=== PATIENT | female | born 1970 | race Caucasian/White ===

== ENCOUNTER 2017-07-11 07:57 | Inpatient (IN) | payer MEDICARE, MEDICAID ==
[~2017-07-11] VITALS: Ht 157.5 cm; Wt 65.0 kg
[~2017-07-11 07:57] MED LIST: ACET-784 PO; ARIP15TA2 PO; IBUP-2070 PO; LORA1TAB3 PO; OMEP20 PO; ONDA4 PO; QUET200T PO
[2017-07-11] MEDS ORDERED: LORazepam 2 MG/ML VIAL IM ONE (08:15)
[2017-07-11] MEDS ORDERED: HALOPERIDOL LACTATE 5 MG/ML VIAL IM ONE (08:15)
[2017-07-11 09:01] LABS: ANION GAP 20 mmol/L (8-16); BASOPHILS # (AUTO) 0.07 K/uL (0.00-0.20); BASOPHILS % (AUTO) 1.5 % (0.0-2.0); CALCIUM, TOTAL 9.1 mg/dL (8.8-10.5); CARBON DIOXIDE 17 mmol/L (22-29); CHLORIDE 104 mmol/L (98-107); CREATININE 0.85 mg/dL (0.60-1.30); EOSINOPHILS % (AUTO) 2.05 % (1.0-6.0); GLOMERULAR FILTR. RATE CALC > 60 mL/min (>60); HEMATOCRIT 36.1 % (36-46); LYMPHOCYTES # (AUTO) 1.5 K/uL (1.0-4.8); LYMPHOCYTES % (AUTO) 31.2 % (22.0-44.0); MEAN CORPUSCULAR HGB CONC 33.3 G/dL (31.0-37.0); MEAN CORPUSCULAR VOLUME 90 fL (80-100); MONOCYTES # (AUTO) 0.5 K/uL (0.1-1.0); NEUTROPHILS # (AUTO) 2.6 K/uL (1.8-7.7); NEUTROPHILS % (AUTO) 54.3 % (40.0-70.0); PLATELET COUNT (AUTO) 316 K/uL (150-450); RED CELL DISTRIBUTION WIDTH 14.5 % (11.5-14.5); SODIUM SERUM 141 mmol/L (136-145); UREA NITROGEN, BLOOD 10 mg/dL (7-18); WHITE BLOOD COUNT (AUTO) 4.8 K/uL (4.5-11.0)
[2017-07-11 09:04] LABS: ALANINE AMINOTRANSFERASE 37 U/L (12-78); ASPARTATE AMINOTRANSFERASE 20 U/L (15-37); BILIRUBIN,TOTAL 0.5 mg/dL (0.1-1.0); TOTAL PROTEIN, SERUM 6.9 g/dL (6.4-8.2)
[2017-07-11] MEDS ORDERED: POTASSIUM CHLORIDE 20 MEQ ER TABLET PO ONE (10:45)
[2017-07-11] MEDS ORDERED: LORazepam 2 MG TABLET PO PRN (11:30)
[2017-07-11] MEDS ORDERED: ZOLPIDEM TARTRATE 10 MG TABLET PO PRN (11:30)
[2017-07-11] MEDS: QUEtiapine FUMARATE 200 MG TABLET PO SCH ×2 (12:30→21:08)
[2017-07-11] MEDS: LORazepam 1 MG TABLET PO SCH ×2 (13:00→17:22)
[2017-07-11 13:19] LABS: CHOL/HDL RATIO 5.2 (3.9-5.7)
[2017-07-11 13:45] VITALS: BP 116/69
[2017-07-11] MEDS ORDERED: INFLUENZA VIRUS VACCINE QVS 2017-18 (3YR+)/PF 60 MCG/0.5 ML SYRINGE IM ONE (13:45)
[2017-07-11 16:17] VITALS: BP 106/62
[2017-07-11 17:20] VITALS: BP 110/72
[2017-07-12 06:10] VITALS: BP 104/61
[2017-07-12] MEDS: LORazepam 1 MG TABLET PO SCH ×3 (08:25→17:06)
[2017-07-12] MEDS: QUEtiapine FUMARATE 200 MG TABLET PO SCH ×3 (08:25→20:50)
[2017-07-12 09:11] VITALS: BP 117/68
[2017-07-12 12:45] VITALS: BP 112/62
[2017-07-12] MEDS ORDERED: HALOPERIDOL LACTATE 5 MG/ML VIAL IM ONE (12:45)
[2017-07-12] MEDS ORDERED: LORazepam 2 MG/ML VIAL IM ONE (12:45)
[2017-07-12] MEDS ORDERED: DiphenhydrAMINE HCL 50 MG/ML VIAL IM ONE (12:45)
[2017-07-12 16:14] VITALS: BP 101/61
[2017-07-13 04:10] VITALS: BP 122/74
[2017-07-13] MEDS: LORazepam 1 MG TABLET PO SCH ×3 (08:35→16:50)
[2017-07-13] MEDS: QUEtiapine FUMARATE 200 MG TABLET PO SCH ×3 (08:36→20:30)
[2017-07-13 08:38] VITALS: BP 115/74
[2017-07-13] MEDS ORDERED: OMEPRAZOLE 20 MG CAPSULE PO SCH (14:30)
[2017-07-13] MEDS ORDERED: MAG HYDROX/AL HYDROX/SIMETH 30 ML SUSP UDCUP PO PRN ×2 (16:00→23:45)
[2017-07-13 16:13] VITALS: BP 113/73
[2017-07-14 01:23] VITALS: BP 101/68
[2017-07-14] MEDS: OMEPRAZOLE 20 MG CAPSULE PO SCH (08:31)
[2017-07-14] MEDS: LORazepam 1 MG TABLET PO SCH ×3 (08:32→16:38)
[2017-07-14] MEDS: QUEtiapine FUMARATE 200 MG TABLET PO SCH ×3 (08:32→20:38)
[2017-07-14 08:36] VITALS: BP 111/66
[2017-07-14] MEDS: HALOPERIDOL 5 MG TABLET PO PRN (15:07)
[2017-07-14 16:19] VITALS: BP 109/72
[2017-07-15 05:11] VITALS: BP 108/68
[2017-07-15] MEDS: HALOPERIDOL 5 MG TABLET PO PRN (05:12)
[2017-07-15 08:37] VITALS: BP 112/67
[2017-07-15] MEDS: LORazepam 1 MG TABLET PO SCH ×3 (08:58→16:33)
[2017-07-15] MEDS: QUEtiapine FUMARATE 200 MG TABLET PO SCH ×3 (08:58→20:35)
[2017-07-15] MEDS: OMEPRAZOLE 20 MG CAPSULE PO SCH (08:58)
[2017-07-15 16:06] VITALS: BP 105/66
[2017-07-16 02:05] VITALS: BP 112/71
[2017-07-16] MEDS: HALOPERIDOL 5 MG TABLET PO PRN ×2 (02:08→15:14)
[2017-07-16 08:21] VITALS: BP 111/71
[2017-07-16] MEDS: OMEPRAZOLE 20 MG CAPSULE PO SCH (08:33)
[2017-07-16] MEDS: LORazepam 1 MG TABLET PO SCH ×3 (08:33→16:38)
[2017-07-16] MEDS: QUEtiapine FUMARATE 200 MG TABLET PO SCH ×3 (08:34→20:37)
[2017-07-16 16:09] VITALS: BP 102/71
[2017-07-17 00:44] VITALS: BP_SYST 104; BP_SYST 114; BP_DIAS 60
[2017-07-17] MEDS: HALOPERIDOL 5 MG TABLET PO PRN ×2 (01:31→10:08)
[2017-07-17 09:14] VITALS: BP 110/70
[2017-07-17] MEDS: LORazepam 1 MG TABLET PO SCH ×3 (09:14→16:22)
[2017-07-17] MEDS: OMEPRAZOLE 20 MG CAPSULE PO SCH (09:14)
[2017-07-17] MEDS: QUEtiapine FUMARATE 200 MG TABLET PO SCH ×2 (09:14→12:24)
[2017-07-17 16:11] VITALS: BP 103/68
== END 2017-07-17 17:30 | disposition home or self-care (01) | DRG 885 ==
LOC: EMS 07:59 → B2X 11:51
PROVIDERS: ADMIT Psychiatry & Neurology Psychiatry; ATTEND Psychiatry & Neurology Psychiatry
DX: F20.0 Paranoid schizophrenia (principal); R45.851 Suicidal ideations; E78.5 Hyperlipidemia, unspecified; R73.9 Hyperglycemia, unspecified; E87.6 Hypokalemia; Z79.899 Other long term (current) drug therapy; Z88.1 Allergy status to other antibiotic agents; Z28.21 Immunization not carried out because of patient refusal
CPT/HCPCS: 93005; 96372; 99285; G0480; J1200; J1630; J2060

== ENCOUNTER 2017-11-03 11:20 | Inpatient (IN) | payer MEDICARE, MEDICAID ==
[~2017-11-03] VITALS: Ht 157.5 cm; Wt 65.7 kg
[~2017-11-03 11:20] MED LIST changes: -ACET-784 PO; -ARIP15TA2 PO; -IBUP-2070 PO; -LORA1TAB3 PO; -OMEP20 PO; -ONDA4 PO
[2017-11-03 12:38] VITALS: BP 125/71
[2017-11-03] MEDS ORDERED: ZOLPIDEM TARTRATE 10 MG TABLET PO PRN (12:45)
[2017-11-03] MEDS ORDERED: QUEtiapine FUMARATE 100 MG TABLET PO PRN (12:45)
[2017-11-03 14:48] VITALS: BP 138/95
[2017-11-03 16:21] VITALS: BP 117/73
[2017-11-03] MEDS: LORazepam 2 MG TABLET PO PRN (16:30)
[2017-11-04 02:59] VITALS: BP 122/79
[2017-11-04] MEDS: LORazepam 2 MG TABLET PO PRN ×3 (03:01→23:49)
[2017-11-04 08:10] LABS: EOSINOPHILS % (AUTO) 4.9 % (1.0-6.0); HEMATOCRIT 33.2 % (36-46); HEMOGLOBIN 10.6 g/dL (12.0-16.0); LYMPHOCYTES # (AUTO) 1.5 K/uL (1.0-4.8); LYMPHOCYTES % (AUTO) 34.8 % (22.0-44.0); MEAN CORPUSCULAR HEMOGLOBIN 23.7 pg (26.0-34.0); MEAN CORPUSCULAR HGB CONC 31.9 G/dL (31.0-37.0); MEAN CORPUSCULAR VOLUME 74 fL (80-100); MONOCYTES # (AUTO) 0.3 K/uL (0.1-1.0); MONOCYTES % (AUTO) 7.2 % (2.0-9.0); NEUTROPHILS # (AUTO) 2.3 K/uL (1.8-7.7); NEUTROPHILS % (AUTO) 52.1 % (40.0-70.0); PLATELET COUNT (AUTO) 275 K/uL (150-450); RED BLOOD CELL COUNT(AUTO) 4.48 MIL/uL (4.00-5.20)
[2017-11-04 08:48] VITALS: BP 129/70
[2017-11-04 09:00] LABS: ALANINE AMINOTRANSFERASE 65 U/L (12-78); ALBUMIN 3.8 g/dL (3.4-5.0); ALKALINE PHOSPHATASE 81 U/L (46-116); ANION GAP 9 mmol/L (8-16); ASPARTATE AMINOTRANSFERASE 35 U/L (15-37); BILIRUBIN,TOTAL 0.2 mg/dL (0.1-1.0); CALCIUM, TOTAL 8.9 mg/dL (8.8-10.5); CARBON DIOXIDE 26 mmol/L (22-29); CHLORIDE 106 mmol/L (98-107); CHOL/HDL RATIO 3.4 (3.9-5.7); CHOLESTEROL 220 mg/dL (131-200); CREATININE 0.58 mg/dL (0.60-1.30); FREE T4 (FREE THYROXINE) 0.64 ng/dL (0.76-1.46); GLOMERULAR FILTR. RATE CALC > 60 mL/min (>60); GLUCOSE,RANDOM 97 mg/dL (70-110); HCG,QUANTITATIVE 1 mIU/mL (0-6); HDL CHOLESTEROL 64 mg/dL (40-60); LDL CHOL (CALC.) 137 mg/dL (0-130); POTASSIUM 4.5 mmol/L (3.5-5.1); SODIUM SERUM 141 mmol/L (136-145); THYROID STIMULATING HORMONE 1.97 uIU/mL (0.36-3.74); TOTAL PROTEIN, SERUM 6.7 g/dL (6.4-8.2); TRIGLYCERIDES 94 mg/dL (15-150); UREA NITROGEN, BLOOD 12 mg/dL (7-18)
[2017-11-04] MEDS: QUEtiapine FUMARATE 200 MG TABLET PO SCH ×3 (09:26→20:53)
[2017-11-04 23:50] VITALS: BP 123/69
[2017-11-05] MEDS: MAG HYDROX/AL HYDROX/SIMETH ES 30 ML SUSPENSION UDCUP PO PRN ×2 (00:22→11:58)
[2017-11-05 00:45] VITALS: BP 113/60
[2017-11-05] MEDS: QUEtiapine FUMARATE 200 MG TABLET PO SCH ×3 (08:20→20:44)
[2017-11-05] MEDS: LORazepam 2 MG TABLET PO PRN ×3 (08:22→22:21)
[2017-11-05] MEDS ORDERED: PANT40TA25 PO (08:29)
[2017-11-05] MEDS: PANTOPRAZOLE SODIUM 40 MG DR TABLET PO SCH (09:20)
[2017-11-05 16:12] VITALS: BP 116/77
[2017-11-06] VITALS: BP 120/64
[2017-11-06] MEDS: MAG HYDROX/AL HYDROX/SIMETH ES 30 ML SUSPENSION UDCUP PO PRN (00:47)
[2017-11-06 08:21] VITALS: BP 117/72
[2017-11-06] MEDS: PANTOPRAZOLE SODIUM 40 MG DR TABLET PO SCH (08:28)
[2017-11-06] MEDS: QUEtiapine FUMARATE 200 MG TABLET PO SCH ×3 (08:28→20:34)
[2017-11-06] MEDS: LORazepam 2 MG TABLET PO PRN (08:41)
[2017-11-06 16:15] VITALS: BP 104/72
[2017-11-07 00:01] VITALS: BP 102/60
[2017-11-07 08:10] VITALS: BP 120/70
[2017-11-07] MEDS: QUEtiapine FUMARATE 200 MG TABLET PO SCH ×3 (08:31→20:47)
[2017-11-07] MEDS: PANTOPRAZOLE SODIUM 40 MG DR TABLET PO SCH (08:31)
[2017-11-07] MEDS: LORazepam 2 MG TABLET PO PRN ×2 (08:39→13:40)
[2017-11-07 16:36] VITALS: BP 103/64
[2017-11-07] MEDS: SIMVASTATIN 10 MG TABLET PO SCH (20:47)
[2017-11-08] VITALS: BP 106/68
[2017-11-08] MEDS: LORazepam 2 MG TABLET PO PRN ×3 (06:48→21:18)
[2017-11-08 07:59] LABS: BASOPHILS % (AUTO) 0.6 % (0.0-2.0); EOSINOPHILS % (AUTO) 5.5 % (1.0-6.0); HEMATOCRIT 31.3 % (36-46); HEMOGLOBIN 9.8 g/dL (12.0-16.0); LYMPHOCYTES # (AUTO) 1.3 K/uL (1.0-4.8); LYMPHOCYTES % (AUTO) 16.1 % (22.0-44.0); MEAN CORPUSCULAR HEMOGLOBIN 23.3 pg (26.0-34.0); MEAN CORPUSCULAR HGB CONC 31.4 G/dL (31.0-37.0); MEAN CORPUSCULAR VOLUME 74 fL (80-100); MONOCYTES # (AUTO) 0.6 K/uL (0.1-1.0); MONOCYTES % (AUTO) 6.8 % (2.0-9.0); NEUTROPHILS # (AUTO) 5.8 K/uL (1.8-7.7); PLATELET COUNT (AUTO) 324 K/uL (150-450); RED BLOOD CELL COUNT(AUTO) 4.22 MIL/uL (4.00-5.20); RED CELL DISTRIBUTION WIDTH 18.6 % (11.5-14.5)
[2017-11-08 08:00] VITALS: BP 114/74
[2017-11-08] MEDS: PANTOPRAZOLE SODIUM 40 MG DR TABLET PO SCH (08:38)
[2017-11-08] MEDS: QUEtiapine FUMARATE 200 MG TABLET PO SCH ×3 (08:39→20:47)
[2017-11-08 16:18] VITALS: BP 102/65
[2017-11-08] MEDS: SIMVASTATIN 10 MG TABLET PO SCH (20:47)
[2017-11-09] VITALS: BP 100/62
[2017-11-09] MEDS: MAG HYDROX/AL HYDROX/SIMETH ES 30 ML SUSPENSION UDCUP PO PRN (06:04)
[2017-11-09] MEDS: QUEtiapine FUMARATE 200 MG TABLET PO SCH ×2 (08:07→11:57)
[2017-11-09] MEDS: PANTOPRAZOLE SODIUM 40 MG DR TABLET PO SCH (08:07)
[2017-11-09 09:05] VITALS: BP 109/70
[2017-11-09] MEDS: LORazepam 2 MG TABLET PO PRN (09:22)
[2017-11-09] MEDS ORDERED: SIMV-259 PO (12:31)
[2017-11-09] MEDS ORDERED: QUET200T PO ×3 (12:31)
[2017-11-09] MEDS ORDERED: PANT40TA25 PO (12:31)
== END 2017-11-09 14:50 | disposition home or self-care (01) | DRG 885 ==
LOC: B2X 12:49
PROVIDERS: ADMIT Psychiatry & Neurology Psychiatry; ATTEND Psychiatry & Neurology Psychiatry
DX: F20.0 Paranoid schizophrenia (principal); D64.9 Anemia, unspecified; E78.5 Hyperlipidemia, unspecified; D72.819 Decreased white blood cell count, unspecified; G43.909 Migraine, unspecified, not intractable, without status migrainosus; J45.909 Unspecified asthma, uncomplicated; Z80.9 Family history of malignant neoplasm, unspecified; Z83.3 Family history of diabetes mellitus; Z82.49 Family history of ischemic heart disease and other diseases of the circulatory system; Z88.1 Allergy status to other antibiotic agents; Z79.899 Other long term (current) drug therapy
CPT/HCPCS: 84439; 84443

== ENCOUNTER 2018-06-23 14:03 | Inpatient (IN) | payer MEDICARE, MEDICAID ==
[~2018-06-23] VITALS: Ht 157.5 cm; Wt 65.6 kg
[~2018-06-23 14:03] MED LIST changes: +PANT40TA25 PO; +SIMV-259 PO
[2018-06-23] MEDS ORDERED: ZOLPIDEM TARTRATE 10 MG TABLET PO PRN (16:15)
[2018-06-23] MEDS ORDERED: BACITRACIN 28.4 GM OINTMENT TP PRN (17:00)
[2018-06-23] MEDS ORDERED: ALBUTEROL SULFATE HFA 90 MCG/PUFF 8 GM INHALER IH PRN (17:00)
[2018-06-23] MEDS ORDERED: MAGNESIUM HYDROXIDE SUSPENSION 30 ML UDCUP PO PRN (17:00)
[2018-06-23] MEDS ORDERED: BENZOCAINE/MENTHOL LOZENGE MM PRN (17:00)
[2018-06-23] MEDS ORDERED: CloNIDine HCL 0.1 MG TABLET PO PRN (17:00)
[2018-06-23] MEDS ORDERED: PETROLATUM,WHITE 71 GM JELLY TP PRN (17:00)
[2018-06-23] MEDS ORDERED: ONDANSETRON HCL 4 MG TABLET PO PRN (17:00)
[2018-06-23] MEDS: DOCUSATE SODIUM 100 MG CAPSULE PO SCH (17:17)
[2018-06-23] MEDS: OMEPRAZOLE 20 MG CAPSULE PO SCH (17:17)
[2018-06-23 19:18] LABS: ALANINE AMINOTRANSFERASE 116 U/L (12-78); ALBUMIN 3.4 g/dL (3.4-5.0); ALKALINE PHOSPHATASE 87 U/L (46-116); ANION GAP 6 mmol/L (8-16); ASPARTATE AMINOTRANSFERASE 54 U/L (15-37); BILIRUBIN,TOTAL 0.2 mg/dL (0.1-1.0); CALCIUM, TOTAL 8.3 mg/dL (8.8-10.5); CARBON DIOXIDE 30 mmol/L (22-29); CHLORIDE 102 mmol/L (98-107); CREATININE 0.95 mg/dL (0.60-1.30); GLOMERULAR FILTR. RATE CALC > 60 mL/min (>60); GLUCOSE,RANDOM 89 mg/dL (70-110); POTASSIUM 4.1 mmol/L (3.5-5.1); SODIUM SERUM 138 mmol/L (136-145); THYROID STIMULATING HORMONE 2.35 uIU/mL (0.36-3.74); TOTAL PROTEIN, SERUM 6.5 g/dL (6.4-8.2); UREA NITROGEN, BLOOD 11 mg/dL (7-18)
[2018-06-23 20:42] VITALS: BP 117/72
[2018-06-23] MEDS: LORazepam 2 MG TABLET PO PRN (21:46)
[2018-06-24 02:43] VITALS: BP 107/66
[2018-06-24 04:37] VITALS: BP 112/75
[2018-06-24] MEDS: LORazepam 2 MG TABLET PO PRN ×3 (04:41→19:48)
[2018-06-24] MEDS: IBUPROFEN 600 MG TABLET PO PRN ×2 (04:41→19:48)
[2018-06-24 05:59] LABS: APPEARANCE,URINE CLEAR (CLEAR); BILIRUBIN,URINE NEGATIVE (NEGATIVE); GLUCOSE, URINE (UA) NEGATIVE (NEGATIVE); KETONES,URINE NEGATIVE (NEGATIVE); LEUKOCYTE ESTERASE ,URINE NEGATIVE (NEGATIVE); NITRATE,URINE NEGATIVE (NEGATIVE); OCCULT BLOOD,URINE NEGATIVE (NEGATIVE); PH,URINE 7.5 (5.0-8.0); PROTEIN,URINE NEGATIVE (NEGATIVE); UROBILINOGEN,URINE 0.2 mg/dL (<=1.0)
[2018-06-24 06:04] LABS: AMPHET/METH SCREEN,URINE NEGATIVE (NEGATIVE); BARBITURATE SCREEN, URINE NEGATIVE (NEGATIVE); BENZODIAZEPINES SCREEN,URINE POSITIVE (NEGATIVE); CANNABINOID SCREEN,URINE POSITIVE (NEGATIVE); COCAINE SCREEN,URINE NEGATIVE (NEGATIVE); METHADONE SCREEN, URINE NEGATIVE (NEGATIVE); OPIATE SCREEN,URINE NEGATIVE (NEGATIVE); PHENCYCLIDINE SCREEN,URINE NEGATIVE (NEGATIVE)
[2018-06-24 06:27] LABS: BASOPHILS % (AUTO) 0.9 % (0.0-2.0); EOSINOPHILS % (AUTO) 4.7 % (1.0-6.0); HEMATOCRIT 40.5 % (36-46); HEMOGLOBIN 13.8 g/dL (12.0-16.0); LYMPHOCYTES # (AUTO) 1.3 K/uL (1.0-4.8); LYMPHOCYTES % (AUTO) 22.4 % (22.0-44.0); MEAN CORPUSCULAR HEMOGLOBIN 29.7 pg (26.0-34.0); MEAN CORPUSCULAR VOLUME 87 fL (80-100); MONOCYTES # (AUTO) 0.4 K/uL (0.1-1.0); MONOCYTES % (AUTO) 6.8 % (2.0-9.0); NEUTROPHILS # (AUTO) 3.9 K/uL (1.8-7.7); NEUTROPHILS % (AUTO) 65.2 % (40.0-70.0); PLATELET COUNT (AUTO) 265 K/uL (150-450); RED BLOOD CELL COUNT(AUTO) 4.63 MIL/uL (4.00-5.20); RED CELL DISTRIBUTION WIDTH 17.8 % (11.5-14.5)
[2018-06-24 07:04] LABS: ALANINE AMINOTRANSFERASE 111 U/L (12-78); ALBUMIN 3.5 g/dL (3.4-5.0); ALKALINE PHOSPHATASE 89 U/L (46-116); ANION GAP 7 mmol/L (8-16); ASPARTATE AMINOTRANSFERASE 46 U/L (15-37); BILIRUBIN,TOTAL 0.3 mg/dL (0.1-1.0); CALCIUM, TOTAL 8.4 mg/dL (8.8-10.5); CARBON DIOXIDE 28 mmol/L (22-29); CHLORIDE 101 mmol/L (98-107); CHOL/HDL RATIO 3.8 (3.9-5.7); CHOLESTEROL 227 mg/dL (131-200); CREATININE 0.83 mg/dL (0.60-1.30); GLOMERULAR FILTR. RATE CALC > 60 mL/min (>60); GLUCOSE,RANDOM 93 mg/dL (70-110); HDL CHOLESTEROL 60 mg/dL (40-60); LDL CHOL (CALC.) 149 mg/dL (0-130); POTASSIUM 4.9 mmol/L (3.5-5.1); SODIUM SERUM 136 mmol/L (136-145); THYROID STIMULATING HORMONE 1.89 uIU/mL (0.36-3.74); TOTAL PROTEIN, SERUM 6.4 g/dL (6.4-8.2); TRIGLYCERIDES 89 mg/dL (15-150); UREA NITROGEN, BLOOD 13 mg/dL (7-18)
[2018-06-24 09:10] VITALS: BP 125/84
[2018-06-24] MEDS: OMEPRAZOLE 20 MG CAPSULE PO SCH (09:20)
[2018-06-24] MEDS: DOCUSATE SODIUM 100 MG CAPSULE PO SCH (09:20)
[2018-06-24 17:00] VITALS: BP 118/80
[2018-06-24] MEDS ORDERED: DOCUSATE SODIUM 100 MG CAPSULE PO PRN (18:45)
[2018-06-24 19:48] VITALS: BP 127/78
[2018-06-24] MEDS: SIMVASTATIN 10 MG TABLET PO SCH (20:46)
[2018-06-24] MEDS: ZOLPIDEM TARTRATE 10 MG TABLET PO SCH (20:48)
[2018-06-24] MEDS ORDERED: QUEtiapine FUMARATE 200 MG TABLET PO SCH (21:00)
[2018-06-25 00:01] VITALS: BP 110/71
[2018-06-25] MEDS: HALOPERIDOL 5 MG TABLET PO PRN (00:03)
[2018-06-25] MEDS: LORazepam 2 MG TABLET PO PRN ×4 (01:05→20:51)
[2018-06-25] MEDS: PANTOPRAZOLE SODIUM 40 MG DR TABLET PO SCH (08:15)
[2018-06-25 09:29] VITALS: BP 112/70
[2018-06-25 16:30] VITALS: BP 98/64
[2018-06-25] MEDS: ZOLPIDEM TARTRATE 10 MG TABLET PO SCH (20:51)
[2018-06-25] MEDS: SIMVASTATIN 10 MG TABLET PO SCH (20:51)
[2018-06-25] MEDS: QUEtiapine FUMARATE 200 MG TABLET PO SCH (20:51)
[2018-06-26] MEDS: LORazepam 2 MG TABLET PO PRN ×3 (00:54→18:43)
[2018-06-26] MEDS: PANTOPRAZOLE SODIUM 40 MG DR TABLET PO SCH (08:30)
[2018-06-26 09:23] VITALS: BP 129/83
[2018-06-26 17:00] VITALS: BP 110/68
[2018-06-26] MEDS: TraZODone HCL 100 MG TABLET PO SCH (17:37)
[2018-06-26] MEDS: QUEtiapine FUMARATE 200 MG TABLET PO SCH (20:04)
[2018-06-26] MEDS: ZOLPIDEM TARTRATE 10 MG TABLET PO SCH (20:04)
[2018-06-26] MEDS: SIMVASTATIN 10 MG TABLET PO SCH (20:05)
[2018-06-27 02:14] VITALS: BP 97/70
[2018-06-27] MEDS: LORazepam 2 MG TABLET PO PRN ×4 (02:21→22:20)
[2018-06-27] MEDS ORDERED: TraZODone HCL 100 MG TABLET PO SCH (09:00)
[2018-06-27] MEDS: PANTOPRAZOLE SODIUM 40 MG DR TABLET PO SCH (09:05)
[2018-06-27] MEDS: TraZODone HCL 100 MG TABLET PO SCH ×3 (09:06→17:11)
[2018-06-27] MEDS: IBUPROFEN 600 MG TABLET PO PRN (09:12)
[2018-06-27 09:15] VITALS: BP 108/75
[2018-06-27 10:15] VITALS: BP 106/74
[2018-06-27 17:00] VITALS: BP 106/70
[2018-06-27] MEDS: ZOLPIDEM TARTRATE 10 MG TABLET PO SCH (20:57)
[2018-06-27] MEDS: QUEtiapine FUMARATE 200 MG TABLET PO SCH (20:57)
[2018-06-27] MEDS: SIMVASTATIN 10 MG TABLET PO SCH (21:14)
[2018-06-28 02:18] VITALS: BP 103/61
[2018-06-28] MEDS: LORazepam 2 MG TABLET PO PRN ×3 (03:21→16:34)
[2018-06-28] MEDS: PANTOPRAZOLE SODIUM 40 MG DR TABLET PO SCH (09:47)
[2018-06-28] MEDS: TraZODone HCL 100 MG TABLET PO SCH ×3 (09:47→16:34)
[2018-06-28 10:48] VITALS: BP 102/69
[2018-06-28] MEDS: HALOPERIDOL 5 MG TABLET PO PRN (16:36)
[2018-06-28 17:06] VITALS: BP 100/65
[2018-06-28] MEDS: ZOLPIDEM TARTRATE 10 MG TABLET PO SCH (21:15)
[2018-06-28] MEDS: SIMVASTATIN 10 MG TABLET PO SCH (21:15)
[2018-06-28] MEDS: QUEtiapine FUMARATE 200 MG TABLET PO SCH (21:15)
[2018-06-29 06:46] VITALS: BP 104/67
[2018-06-29] MEDS: LORazepam 2 MG TABLET PO PRN ×3 (09:02→18:50)
[2018-06-29] MEDS: PANTOPRAZOLE SODIUM 40 MG DR TABLET PO SCH (10:22)
[2018-06-29] MEDS: TraZODone HCL 100 MG TABLET PO SCH ×3 (10:22→16:18)
[2018-06-29 10:33] VITALS: BP 101/101
[2018-06-29 17:01] VITALS: BP 105/62
[2018-06-29 18:45] VITALS: BP 100/69
[2018-06-29] MEDS: IBUPROFEN 600 MG TABLET PO PRN (18:50)
[2018-06-29] MEDS: ZOLPIDEM TARTRATE 10 MG TABLET PO SCH (21:13)
[2018-06-29] MEDS: QUEtiapine FUMARATE 200 MG TABLET PO SCH (21:13)
[2018-06-29] MEDS: SIMVASTATIN 10 MG TABLET PO SCH (21:13)
[2018-06-30] MEDS: HALOPERIDOL 5 MG TABLET PO PRN ×3 (02:11→14:21)
[2018-06-30] MEDS: LORazepam 2 MG TABLET PO PRN ×4 (02:11→23:51)
[2018-06-30 08:00] VITALS: BP 98/65
[2018-06-30] MEDS: PANTOPRAZOLE SODIUM 40 MG DR TABLET PO SCH (08:26)
[2018-06-30] MEDS: TraZODone HCL 100 MG TABLET PO SCH ×3 (08:26→16:14)
[2018-06-30 14:18] VITALS: BP 115/67
[2018-06-30] MEDS: IBUPROFEN 600 MG TABLET PO PRN (16:14)
[2018-06-30 16:15] VITALS: BP 106/66
[2018-06-30] MEDS: SIMVASTATIN 10 MG TABLET PO SCH (20:30)
[2018-06-30] MEDS: ZOLPIDEM TARTRATE 10 MG TABLET PO SCH (20:30)
[2018-06-30] MEDS: QUEtiapine FUMARATE 200 MG TABLET PO SCH (20:31)
[2018-06-30 23:50] VITALS: BP 89/52
[2018-06-30] MEDS: LOPERAMIDE HCL 2 MG CAPSULE PO PRN (23:50)
[2018-07-01] MEDS: LOPERAMIDE HCL 2 MG CAPSULE PO PRN ×3 (01:56→06:52)
[2018-07-01 04:15] VITALS: BP 95/58
[2018-07-01] MEDS: MAG HYDROX/AL HYDROX/SIMETH ES 30 ML SUSPENSION UDCUP PO PRN ×3 (06:52→23:31)
[2018-07-01] MEDS ORDERED: DIPHENOXYLATE/ATROP 2.5-0.025 MG TABLET PO ONE (07:45)
[2018-07-01] MEDS: PANTOPRAZOLE SODIUM 40 MG DR TABLET PO SCH (08:04)
[2018-07-01] MEDS: TraZODone HCL 100 MG TABLET PO SCH ×3 (08:04→16:16)
[2018-07-01] MEDS: IBUPROFEN 600 MG TABLET PO PRN (10:45)
[2018-07-01] MEDS: LORazepam 2 MG TABLET PO PRN (10:45)
[2018-07-01 10:51] VITALS: BP 110/60
[2018-07-01] MEDS: DIPHENOXYLATE/ATROP 2.5-0.025 MG TABLET PO PRN (12:30)
[2018-07-01 16:47] VITALS: BP 100/57
[2018-07-01] MEDS: ZOLPIDEM TARTRATE 10 MG TABLET PO SCH (21:04)
[2018-07-01] MEDS: QUEtiapine FUMARATE 200 MG TABLET PO SCH (21:04)
[2018-07-01] MEDS: SIMVASTATIN 10 MG TABLET PO SCH (21:04)
[2018-07-01 21:25] LABS: BASOPHILS % (AUTO) 0.4 % (0.0-2.0); EOSINOPHILS % (AUTO) 2.2 % (1.0-6.0); HEMATOCRIT 38.7 % (36-46); HEMOGLOBIN 13.1 g/dL (12.0-16.0); LYMPHOCYTES # (AUTO) 1.2 K/uL (1.0-4.8); LYMPHOCYTES % (AUTO) 17.6 % (22.0-44.0); MEAN CORPUSCULAR HEMOGLOBIN 29.6 pg (26.0-34.0); MEAN CORPUSCULAR HGB CONC 33.8 G/dL (31.0-37.0); MEAN CORPUSCULAR VOLUME 88 fL (80-100); MONOCYTES # (AUTO) 0.5 K/uL (0.1-1.0); MONOCYTES % (AUTO) 8.1 % (2.0-9.0); NEUTROPHILS # (AUTO) 4.7 K/uL (1.8-7.7); NEUTROPHILS % (AUTO) 71.7 % (40.0-70.0); PLATELET COUNT (AUTO) 268 K/uL (150-450); RED BLOOD CELL COUNT(AUTO) 4.42 MIL/uL (4.00-5.20); RED CELL DISTRIBUTION WIDTH 17.1 % (11.5-14.5)
[2018-07-01 21:33] LABS: ANION GAP 6 mmol/L (8-16); CALCIUM, TOTAL 7.9 mg/dL (8.8-10.5); CARBON DIOXIDE 26 mmol/L (22-29); CHLORIDE 103 mmol/L (98-107); GLOMERULAR FILTR. RATE CALC > 60 mL/min (>60); GLUCOSE,RANDOM 102 mg/dL (70-110); POTASSIUM 3.5 mmol/L (3.5-5.1); SODIUM SERUM 135 mmol/L (136-145); UREA NITROGEN, BLOOD 11 mg/dL (7-18)
[2018-07-01 21:44] LABS: ALANINE AMINOTRANSFERASE 34 U/L (12-78); ALBUMIN 3.6 g/dL (3.4-5.0); ALKALINE PHOSPHATASE 88 U/L (46-116); ASPARTATE AMINOTRANSFERASE 15 U/L (15-37); BILIRUBIN,TOTAL 0.3 mg/dL (0.1-1.0); HCG,QUANTITATIVE < 1 mIU/mL (0-6); PHOSPHORUS 2.7 mg/dL (2.5-4.9)
[2018-07-01 23:27] VITALS: BP 101/52
[2018-07-01] MEDS: ACETAMINOPHEN 325 MG TABLET PO PRN (23:27)
[2018-07-02 06:06] VITALS: BP 126/69
[2018-07-02 06:46] LABS: BASOPHILS % (AUTO) 0.2 % (0.0-2.0); EOSINOPHILS % (AUTO) 3.4 % (1.0-6.0); HEMATOCRIT 36.7 % (36-46); HEMOGLOBIN 12.8 g/dL (12.0-16.0); LYMPHOCYTES # (AUTO) 0.9 K/uL (1.0-4.8); LYMPHOCYTES % (AUTO) 17.3 % (22.0-44.0); MEAN CORPUSCULAR HEMOGLOBIN 30.2 pg (26.0-34.0); MEAN CORPUSCULAR HGB CONC 34.8 G/dL (31.0-37.0); MEAN CORPUSCULAR VOLUME 87 fL (80-100); MONOCYTES # (AUTO) 0.5 K/uL (0.1-1.0); MONOCYTES % (AUTO) 10.4 % (2.0-9.0); NEUTROPHILS # (AUTO) 3.4 K/uL (1.8-7.7); NEUTROPHILS % (AUTO) 68.7 % (40.0-70.0); PLATELET COUNT (AUTO) 249 K/uL (150-450); RED BLOOD CELL COUNT(AUTO) 4.23 MIL/uL (4.00-5.20); RED CELL DISTRIBUTION WIDTH 17.3 % (11.5-14.5)
[2018-07-02 07:00] LABS: ANION GAP 3 mmol/L (8-16); CALCIUM, TOTAL 7.8 mg/dL (8.8-10.5); CARBON DIOXIDE 28 mmol/L (22-29); CHLORIDE 101 mmol/L (98-107); GLOMERULAR FILTR. RATE CALC > 60 mL/min (>60); GLUCOSE,RANDOM 108 mg/dL (70-110); POTASSIUM 3.4 mmol/L (3.5-5.1); SODIUM SERUM 132 mmol/L (136-145); UREA NITROGEN, BLOOD 11 mg/dL (7-18)
[2018-07-02 09:13] VITALS: BP 106/62
[2018-07-02] MEDS: PANTOPRAZOLE SODIUM 40 MG DR TABLET PO SCH (09:21)
[2018-07-02] MEDS: TraZODone HCL 100 MG TABLET PO SCH ×3 (09:21→16:38)
[2018-07-02] MEDS: LORazepam 2 MG TABLET PO PRN (09:22)
[2018-07-02] MEDS: ACETAMINOPHEN 325 MG TABLET PO PRN (15:16)
[2018-07-02 15:18] VITALS: BP 103/66
[2018-07-02] MEDS: DIPHENOXYLATE/ATROP 2.5-0.025 MG TABLET PO PRN (17:47)
[2018-07-02] MEDS: ZOLPIDEM TARTRATE 10 MG TABLET PO SCH (20:47)
[2018-07-02] MEDS: SIMVASTATIN 10 MG TABLET PO SCH (20:47)
[2018-07-02] MEDS: QUEtiapine FUMARATE 200 MG TABLET PO SCH (20:47)
[2018-07-03] MEDS: LORazepam 2 MG TABLET PO PRN ×2 (00:03→09:12)
[2018-07-03 00:15] VITALS: BP 113/71
[2018-07-03 08:00] VITALS: BP 99/67
[2018-07-03] MEDS: PANTOPRAZOLE SODIUM 40 MG DR TABLET PO SCH (08:46)
[2018-07-03] MEDS: TraZODone HCL 100 MG TABLET PO SCH ×3 (08:46→17:22)
[2018-07-03 14:15] VITALS: BP 99/67
[2018-07-03 16:36] VITALS: BP 101/59
[2018-07-03] MEDS ORDERED: HALOPERIDOL LACTATE 5 MG/ML VIAL IM ONE (17:15)
[2018-07-03] MEDS ORDERED: DiphenhydrAMINE HCL 50 MG/ML VIAL IM ONE (17:15)
[2018-07-03] MEDS ORDERED: LORazepam 2 MG/ML VIAL IM ONE (17:15)
[2018-07-03] MEDS: QUEtiapine FUMARATE 200 MG TABLET PO SCH (20:26)
[2018-07-03] MEDS: ZOLPIDEM TARTRATE 10 MG TABLET PO SCH (20:26)
[2018-07-03] MEDS: SIMVASTATIN 10 MG TABLET PO SCH (20:27)
[2018-07-04 00:35] VITALS: BP 94/63
[2018-07-04] MEDS: TraZODone HCL 100 MG TABLET PO SCH ×3 (09:02→16:49)
[2018-07-04] MEDS: PANTOPRAZOLE SODIUM 40 MG DR TABLET PO SCH (09:02)
[2018-07-04] MEDS: LORazepam 1 MG TABLET PO SCH ×3 (09:02→16:49)
[2018-07-04] MEDS: DIPHENOXYLATE/ATROP 2.5-0.025 MG TABLET PO PRN (09:52)
[2018-07-04 12:07] VITALS: BP 96/70
[2018-07-04 16:29] VITALS: BP 101/75
[2018-07-04 19:39] VITALS: BP 110/74
[2018-07-04] MEDS: ACETAMINOPHEN 325 MG TABLET PO PRN (19:39)
[2018-07-04] MEDS: QUEtiapine FUMARATE 200 MG TABLET PO SCH (20:00)
[2018-07-04] MEDS: SIMVASTATIN 10 MG TABLET PO SCH (20:00)
[2018-07-04] MEDS: ZOLPIDEM TARTRATE 10 MG TABLET PO SCH (20:01)
[2018-07-04] MEDS: LOPERAMIDE HCL 2 MG CAPSULE PO PRN (20:04)
[2018-07-05] MEDS: IBUPROFEN 600 MG TABLET PO PRN (00:21)
[2018-07-05 01:13] VITALS: BP 83/54
[2018-07-05] MEDS: DIPHENOXYLATE/ATROP 2.5-0.025 MG TABLET PO PRN (02:24)
[2018-07-05] MEDS: LORazepam 1 MG TABLET PO SCH ×3 (08:31→16:32)
[2018-07-05] MEDS: PANTOPRAZOLE SODIUM 40 MG DR TABLET PO SCH (08:31)
[2018-07-05] MEDS: TraZODone HCL 100 MG TABLET PO SCH ×3 (08:31→16:32)
[2018-07-05 10:40] VITALS: BP 109/75
[2018-07-05 16:10] VITALS: BP 105/68
[2018-07-05] MEDS: ZOLPIDEM TARTRATE 10 MG TABLET PO SCH (20:15)
[2018-07-05] MEDS: SIMVASTATIN 10 MG TABLET PO SCH (20:15)
[2018-07-05] MEDS: QUEtiapine FUMARATE 200 MG TABLET PO SCH (20:16)
[2018-07-06 00:01] VITALS: BP 112/68
[2018-07-06] MEDS: LOPERAMIDE HCL 2 MG CAPSULE PO PRN (00:01)
[2018-07-06] MEDS: IBUPROFEN 600 MG TABLET PO PRN (00:01)
[2018-07-06] MEDS: TraZODone HCL 100 MG TABLET PO SCH ×3 (08:24→16:49)
[2018-07-06] MEDS: PANTOPRAZOLE SODIUM 40 MG DR TABLET PO SCH (08:24)
[2018-07-06] MEDS: LORazepam 1 MG TABLET PO SCH ×3 (08:24→16:49)
[2018-07-06] MEDS: TiZANidine HCL 4 MG TABLET PO PRN ×2 (09:07→16:53)
[2018-07-06 09:12] VITALS: BP 117/82
[2018-07-06] MEDS ORDERED: IBUPROFEN 800 MG TABLET PO PRN (11:00)
[2018-07-06 16:53] VITALS: BP 109/63
[2018-07-06 16:54] VITALS: BP 109/63
[2018-07-06] MEDS: QUEtiapine FUMARATE 200 MG TABLET PO SCH (20:45)
[2018-07-06] MEDS: ZOLPIDEM TARTRATE 10 MG TABLET PO SCH (20:46)
[2018-07-06] MEDS: SIMVASTATIN 10 MG TABLET PO SCH (20:46)
[2018-07-07 00:39] VITALS: BP 93/59
[2018-07-07] MEDS: PANTOPRAZOLE SODIUM 40 MG DR TABLET PO SCH (08:35)
[2018-07-07] MEDS: LORazepam 1 MG TABLET PO SCH ×2 (08:35→12:44)
[2018-07-07] MEDS: TraZODone HCL 100 MG TABLET PO SCH ×2 (08:35→12:44)
[2018-07-07 08:40] VITALS: BP 113/67
[2018-07-07] MEDS: TiZANidine HCL 4 MG TABLET PO PRN ×2 (08:43→14:46)
[2018-07-07 10:56] VITALS: BP 104/67
[2018-07-07] MEDS ORDERED: TRAZ-220 PO (12:02)
[2018-07-07] MEDS ORDERED: QUET200T PO (12:02)
== END 2018-07-07 15:10 | disposition home or self-care (01) | DRG 885 ==
LOC: 3EX 15:30
PROVIDERS: ADMIT Psychiatry & Neurology Psychiatry; ATTEND Psychiatry & Neurology Psychiatry
DX: F20.0 Paranoid schizophrenia (principal); R45.851 Suicidal ideations; D64.9 Anemia, unspecified; E78.00 Pure hypercholesterolemia, unspecified; E83.51 Hypocalcemia; F12.90 Cannabis use, unspecified, uncomplicated; G43.909 Migraine, unspecified, not intractable, without status migrainosus; G47.00 Insomnia, unspecified; Z63.8 Other specified problems related to primary support group; N93.9 Abnormal uterine and vaginal bleeding, unspecified; R19.7 Diarrhea, unspecified; Z88.1 Allergy status to other antibiotic agents
CPT/HCPCS: 76700; 76856; 80074; 80307; 83036; 83735; 84100; 84436; 84439; 84443; 86850; 86900; 86901; 87045; 87081; 87427; G0378; J1200; J1630; J2060; Q0162

== ENCOUNTER 2018-07-08 13:47 | Inpatient (IN) | payer MEDICARE, MEDICAID ==
[~2018-07-08] VITALS: Ht 157.5 cm; Wt 63.5 kg
[~2018-07-08 13:47] MED LIST changes: +TRAZ-220 PO
[2018-07-08] MEDS ORDERED: HALOPERIDOL 5 MG TABLET PO PRN (16:30)
[2018-07-08] MEDS ORDERED: LORazepam 2 MG TABLET PO PRN (16:30)
[2018-07-08 18:15] VITALS: BP 109/55
[2018-07-08] MEDS: ZOLPIDEM TARTRATE 10 MG TABLET PO PRN (23:40)
[2018-07-09 00:26] VITALS: BP 112/60
[2018-07-09 07:43] LABS: BASOPHILS % (AUTO) 0.4 % (0.0-2.0); EOSINOPHILS % (AUTO) 9.6 % (1.0-6.0); HEMATOCRIT 36.3 % (36-46); HEMOGLOBIN 12.4 g/dL (12.0-16.0); LYMPHOCYTES # (AUTO) 1.8 K/uL (1.0-4.8); LYMPHOCYTES % (AUTO) 23.3 % (22.0-44.0); MEAN CORPUSCULAR HEMOGLOBIN 29.7 pg (26.0-34.0); MEAN CORPUSCULAR HGB CONC 34.3 G/dL (31.0-37.0); MEAN CORPUSCULAR VOLUME 87 fL (80-100); MONOCYTES # (AUTO) 0.6 K/uL (0.1-1.0); MONOCYTES % (AUTO) 8.2 % (2.0-9.0); NEUTROPHILS # (AUTO) 4.5 K/uL (1.8-7.7); NEUTROPHILS % (AUTO) 58.5 % (40.0-70.0); PLATELET COUNT (AUTO) 383 K/uL (150-450); RED BLOOD CELL COUNT(AUTO) 4.19 MIL/uL (4.00-5.20)
[2018-07-09 08:08] VITALS: BP 120/69
[2018-07-09 08:10] LABS: ALANINE AMINOTRANSFERASE 19 U/L (12-78); ALBUMIN 3.3 g/dL (3.4-5.0); ALKALINE PHOSPHATASE 67 U/L (46-116); ANION GAP 6 mmol/L (8-16); ASPARTATE AMINOTRANSFERASE 13 U/L (15-37); BILIRUBIN,TOTAL 0.1 mg/dL (0.1-1.0); CALCIUM, TOTAL 8.3 mg/dL (8.8-10.5); CARBON DIOXIDE 29 mmol/L (22-29); CHLORIDE 106 mmol/L (98-107); CHOL/HDL RATIO 2.3 (3.9-5.7); CHOLESTEROL 104 mg/dL (131-200); CREATININE 0.78 mg/dL (0.60-1.30); FREE T4 (FREE THYROXINE) 0.81 ng/dL (0.76-1.46); GLOMERULAR FILTR. RATE CALC > 60 mL/min (>60); GLUCOSE,RANDOM 88 mg/dL (70-110); HCG,QUANTITATIVE < 1 mIU/mL (0-6); HDL CHOLESTEROL 45 mg/dL (40-60); LDL CHOL (CALC.) 53 mg/dL (0-130); POTASSIUM 3.9 mmol/L (3.5-5.1); SODIUM SERUM 141 mmol/L (136-145); THYROID STIMULATING HORMONE 2.39 uIU/mL (0.36-3.74); TOTAL PROTEIN, SERUM 6.2 g/dL (6.4-8.2); TRIGLYCERIDES 30 mg/dL (15-150); UREA NITROGEN, BLOOD 8 mg/dL (7-18)
[2018-07-09 08:13] LABS: HEMOGLOBIN A1C 5.2 % (4.5-6.2)
[2018-07-09] MEDS: LORazepam 1 MG TABLET PO SCH ×2 (12:23→16:36)
[2018-07-09] MEDS: TraZODone HCL 100 MG TABLET PO SCH ×2 (12:23→16:36)
[2018-07-09 16:14] VITALS: BP 131/69
[2018-07-09] MEDS ORDERED: ALBUTEROL SULFATE HFA 90 MCG/PUFF 8 GM INHALER IH PRN (19:30)
[2018-07-09] MEDS ORDERED: LOPERAMIDE HCL 2 MG CAPSULE PO PRN (19:30)
[2018-07-09] MEDS ORDERED: ONDANSETRON HCL 4 MG TABLET PO PRN (19:30)
[2018-07-09] MEDS ORDERED: IBUPROFEN 600 MG TABLET PO PRN (19:30)
[2018-07-09] MEDS ORDERED: PETROLATUM,WHITE 71 GM JELLY TP PRN (19:30)
[2018-07-09] MEDS ORDERED: ACETAMINOPHEN 325 MG TABLET PO PRN (19:30)
[2018-07-09] MEDS ORDERED: DOCUSATE SODIUM 100 MG CAPSULE PO PRN (19:30)
[2018-07-09] MEDS ORDERED: MAGNESIUM HYDROXIDE SUSPENSION 30 ML UDCUP PO PRN (19:30)
[2018-07-09] MEDS ORDERED: BENZOCAINE/MENTHOL LOZENGE MM PRN (19:30)
[2018-07-09] MEDS ORDERED: BACITRACIN 28.4 GM OINTMENT TP PRN (19:30)
[2018-07-09] MEDS ORDERED: CloNIDine HCL 0.1 MG TABLET PO PRN (19:30)
[2018-07-09] MEDS ORDERED: MAG HYDROX/AL HYDROX/SIMETH ES 30 ML SUSPENSION UDCUP PO PRN (19:30)
[2018-07-09] MEDS ORDERED: SIMVASTATIN 10 MG TABLET PO SCH (21:00)
[2018-07-09] MEDS ORDERED: QUEtiapine FUMARATE 200 MG TABLET PO SCH (21:00)
[2018-07-09] MEDS: ZOLPIDEM TARTRATE 10 MG TABLET PO PRN (22:01)
[2018-07-10] VITALS: BP 116/68
[2018-07-10] MEDS: TraZODone HCL 100 MG TABLET PO SCH ×2 (08:12→12:29)
[2018-07-10] MEDS: LORazepam 1 MG TABLET PO SCH ×2 (08:12→12:29)
[2018-07-10 08:17] VITALS: BP 103/64
[2018-07-10] MEDS ORDERED: PANTOPRAZOLE SODIUM 40 MG DR TABLET PO SCH (09:00)
[2018-07-10] MEDS ORDERED: SIMV-259 PO (11:54)
[2018-07-10] MEDS ORDERED: LORA1TAB3 PO (12:17)
== END 2018-07-10 14:20 | disposition home or self-care (01) | DRG 885 ==
LOC: B2X 16:35
PROVIDERS: ADMIT Psychiatry & Neurology Psychiatry; ATTEND Psychiatry & Neurology Psychiatry
DX: F25.9 Schizoaffective disorder, unspecified (principal); D64.9 Anemia, unspecified; E78.00 Pure hypercholesterolemia, unspecified; E83.51 Hypocalcemia; F12.90 Cannabis use, unspecified, uncomplicated; G43.909 Migraine, unspecified, not intractable, without status migrainosus; Z79.899 Other long term (current) drug therapy; Z88.1 Allergy status to other antibiotic agents
CPT/HCPCS: 83036; 84439; 84443; 87081

== ENCOUNTER 2019-03-29 14:12 | Inpatient (IN) | payer MEDICARE, MEDICAID ==
[~2019-03-29] VITALS: Ht 157.5 cm; Wt 75.5 kg
[~2019-03-29 14:12] MED LIST changes: +LORA1TAB3 PO
[2019-03-29] MEDS ORDERED: IBUPROFEN 600 MG TABLET PO ONE (15:45)
[2019-03-29 15:54] LABS: BASOPHILS % (AUTO) 0.8 % (0.0-2.0); EOSINOPHILS % (AUTO) 2.7 % (1.0-6.0); HEMATOCRIT 43.3 % (36-46); HEMOGLOBIN 14.4 g/dL (12.0-16.0); LYMPHOCYTES # (AUTO) 1.6 K/uL (1.0-4.8); LYMPHOCYTES % (AUTO) 24.1 % (22.0-44.0); MEAN CORPUSCULAR HEMOGLOBIN 30.2 pg (26.0-34.0); MEAN CORPUSCULAR HGB CONC 33.2 G/dL (31.0-37.0); MEAN CORPUSCULAR VOLUME 91 fL (80-100); MONOCYTES # (AUTO) 0.5 K/uL (0.1-1.0); MONOCYTES % (AUTO) 7.7 % (2.0-9.0); NEUTROPHILS # (AUTO) 4.2 K/uL (1.8-7.7); NEUTROPHILS % (AUTO) 64.7 % (40.0-70.0); PLATELET COUNT (AUTO) 265 K/uL (150-450); RED BLOOD CELL COUNT(AUTO) 4.77 MIL/uL (4.00-5.20); RED CELL DISTRIBUTION WIDTH 12.7 % (11.5-14.5)
[2019-03-29 16:05] LABS: ANION GAP 13 mmol/L (8-16); CALCIUM, TOTAL 10.1 mg/dL (8.8-10.5); CARBON DIOXIDE 23 mmol/L (22-29); CHLORIDE 101 mmol/L (98-107); CREATININE 0.93 mg/dL (0.60-1.30); GLOMERULAR FILTR. RATE CALC > 60 mL/min (>60); GLUCOSE,RANDOM 101 mg/dL (70-110); SODIUM SERUM 137 mmol/L (136-145); UREA NITROGEN, BLOOD 11 mg/dL (7-18)
[2019-03-29 16:10] LABS: ALANINE AMINOTRANSFERASE 74 U/L (12-78); ALKALINE PHOSPHATASE 88 U/L (46-116); ASPARTATE AMINOTRANSFERASE 25 U/L (15-37); BILIRUBIN,TOTAL 0.2 mg/dL (0.1-1.0); TOTAL PROTEIN, SERUM 7.8 g/dL (6.4-8.2)
[2019-03-29] MEDS ORDERED: LORazepam 2 MG TABLET PO PRN (16:15)
[2019-03-29] MEDS ORDERED: HALOPERIDOL 5 MG TABLET PO PRN (16:15)
[2019-03-29 18:07] LABS: AMPHET/METH SCREEN,URINE NEGATIVE (NEGATIVE); BARBITURATE SCREEN, URINE NEGATIVE (NEGATIVE); BENZODIAZEPINES SCREEN,URINE NEGATIVE (NEGATIVE); CANNABINOID SCREEN,URINE NEGATIVE (NEGATIVE); COCAINE SCREEN,URINE NEGATIVE (NEGATIVE); METHADONE SCREEN, URINE NEGATIVE (NEGATIVE); OPIATE SCREEN,URINE NEGATIVE (NEGATIVE); PHENCYCLIDINE SCREEN,URINE NEGATIVE (NEGATIVE)
[2019-03-29 18:59] VITALS: BP 110/72
[2019-03-29] MEDS ORDERED: ACETAMINOPHEN 325 MG TABLET PO PRN (19:30)
[2019-03-29] MEDS: SIMVASTATIN 10 MG TABLET PO SCH (22:18)
[2019-03-30 06:22] LABS: CHOL/HDL RATIO 5.3 (3.9-5.7); FREE T4 (FREE THYROXINE) 0.67 ng/dL (0.76-1.46); THYROID STIMULATING HORMONE 2.19 uIU/mL (0.36-3.74)
[2019-03-30] MEDS: PANTOPRAZOLE SODIUM 40 MG DR TABLET PO SCH (08:22)
[2019-03-30] MEDS ORDERED: BENZOCAINE/MENTHOL LOZENGE MM PRN (08:30)
[2019-03-30] MEDS ORDERED: ONDANSETRON HCL 4 MG TABLET PO PRN (08:30)
[2019-03-30] MEDS ORDERED: MAG HYDROX/AL HYDROX/SIMETH ES 30 ML SUSPENSION UDCUP PO PRN (08:30)
[2019-03-30] MEDS ORDERED: PETROLATUM,WHITE 28 GM JELLY TP PRN (08:30)
[2019-03-30] MEDS ORDERED: ALBUTEROL SULFATE HFA 90 MCG/PUFF 8 GM INHALER IH PRN (08:30)
[2019-03-30] MEDS ORDERED: MAGNESIUM HYDROXIDE SUSPENSION 30 ML UDCUP PO PRN (08:30)
[2019-03-30] MEDS ORDERED: LOPERAMIDE HCL 2 MG CAPSULE PO PRN (08:30)
[2019-03-30] MEDS ORDERED: BACITRACIN 28.4 GM OINTMENT TP PRN (08:30)
[2019-03-30] MEDS ORDERED: CloNIDine HCL 0.1 MG TABLET PO PRN (08:30)
[2019-03-30] MEDS: DOCUSATE SODIUM 100 MG CAPSULE PO SCH (09:00)
[2019-03-30 11:26] VITALS: BP 142/98
[2019-03-30] MEDS ORDERED: LURA80 PO (15:32)
[2019-03-30 16:49] VITALS: BP 120/79
[2019-03-30] MEDS: LORazepam 1 MG TABLET PO SCH (17:30)
[2019-03-30] MEDS: LURASIDONE HCL 80 MG TABLET PO SCH (21:56)
[2019-03-30] MEDS: SIMVASTATIN 10 MG TABLET PO SCH (21:56)
[2019-03-30] MEDS: QUEtiapine FUMARATE 200 MG TABLET PO SCH (21:56)
[2019-03-30] MEDS: IBUPROFEN 600 MG TABLET PO PRN (22:54)
[2019-03-30] MEDS: ZOLPIDEM TARTRATE 10 MG TABLET PO PRN (23:59)
[2019-03-31 00:06] VITALS: BP 92/62
[2019-03-31] MEDS: IBUPROFEN 600 MG TABLET PO PRN ×2 (06:12→15:00)
[2019-03-31] MEDS: PANTOPRAZOLE SODIUM 40 MG DR TABLET PO SCH (08:23)
[2019-03-31] MEDS: LORazepam 1 MG TABLET PO SCH ×3 (08:23→16:21)
[2019-03-31] MEDS: DOCUSATE SODIUM 100 MG CAPSULE PO SCH (08:24)
[2019-03-31] MEDS: BENZTROPINE MESYLATE 0.5 MG TABLET PO SCH ×2 (09:55→16:21)
[2019-03-31 10:10] VITALS: BP 107/70
[2019-03-31 15:01] VITALS: BP 141/94
[2019-03-31] MEDS: SIMVASTATIN 10 MG TABLET PO SCH (20:10)
[2019-03-31] MEDS: LURASIDONE HCL 80 MG TABLET PO SCH (20:10)
[2019-03-31] MEDS: QUEtiapine FUMARATE 200 MG TABLET PO SCH (20:10)
[2019-03-31] MEDS: ZOLPIDEM TARTRATE 10 MG TABLET PO PRN (22:04)
[2019-04-01 04:00] VITALS: BP 122/78
[2019-04-01] MEDS: LORazepam 1 MG TABLET PO SCH ×3 (08:56→16:19)
[2019-04-01] MEDS: DOCUSATE SODIUM 100 MG CAPSULE PO SCH (08:56)
[2019-04-01] MEDS: BENZTROPINE MESYLATE 0.5 MG TABLET PO SCH ×3 (08:57→20:06)
[2019-04-01] MEDS: PANTOPRAZOLE SODIUM 40 MG DR TABLET PO SCH (08:57)
[2019-04-01 10:01] VITALS: BP 115/72
[2019-04-01 17:11] VITALS: BP 134/85
[2019-04-01] MEDS: QUEtiapine FUMARATE 200 MG TABLET PO SCH (20:05)
[2019-04-01] MEDS: SIMVASTATIN 10 MG TABLET PO SCH (20:06)
[2019-04-01] MEDS: LURASIDONE HCL 80 MG TABLET PO SCH (20:06)
[2019-04-01] MEDS ORDERED: SIMVASTATIN 10 MG TABLET PO SCH (21:00)
[2019-04-01] MEDS: ZOLPIDEM TARTRATE 10 MG TABLET PO PRN (22:06)
[2019-04-02] VITALS: BP 131/85
[2019-04-02] MEDS: LORazepam 2 MG TABLET PO PRN ×3 (00:07→16:21)
[2019-04-02 04:33] VITALS: BP 122/70
[2019-04-02] MEDS: IBUPROFEN 600 MG TABLET PO PRN (04:37)
[2019-04-02] MEDS: BENZTROPINE MESYLATE 0.5 MG TABLET PO SCH ×3 (09:03→20:54)
[2019-04-02] MEDS: PANTOPRAZOLE SODIUM 40 MG DR TABLET PO SCH (09:04)
[2019-04-02] MEDS: OMEGA-3/DHA/EPA/FISH OIL 1,000 MG CAPSULE PO SCH (09:04)
[2019-04-02] MEDS: DOCUSATE SODIUM 100 MG CAPSULE PO SCH (09:04)
[2019-04-02 11:31] VITALS: BP 122/89
[2019-04-02 17:01] VITALS: BP 143/95
[2019-04-02] MEDS: SIMVASTATIN 10 MG TABLET PO SCH (20:54)
[2019-04-02] MEDS: QUEtiapine FUMARATE 200 MG TABLET PO SCH (20:55)
[2019-04-02] MEDS: LURASIDONE HCL 80 MG TABLET PO SCH (20:55)
[2019-04-03 00:30] VITALS: BP 114/83
[2019-04-03] MEDS: LORazepam 2 MG TABLET PO PRN ×4 (01:32→22:27)
[2019-04-03] MEDS: IBUPROFEN 600 MG TABLET PO PRN (01:33)
[2019-04-03 08:00] VITALS: BP 114/84
[2019-04-03] MEDS: DOCUSATE SODIUM 100 MG CAPSULE PO SCH (08:12)
[2019-04-03] MEDS: BENZTROPINE MESYLATE 0.5 MG TABLET PO SCH ×3 (08:12→20:50)
[2019-04-03] MEDS: PANTOPRAZOLE SODIUM 40 MG DR TABLET PO SCH (08:12)
[2019-04-03] MEDS: OMEGA-3/DHA/EPA/FISH OIL 1,000 MG CAPSULE PO SCH (08:12)
[2019-04-03 16:36] VITALS: BP 137/73
[2019-04-03] MEDS: LURASIDONE HCL 80 MG TABLET PO SCH (20:50)
[2019-04-03] MEDS: QUEtiapine FUMARATE 200 MG TABLET PO SCH (20:50)
[2019-04-03] MEDS: SIMVASTATIN 10 MG TABLET PO SCH (20:50)
[2019-04-04 00:01] VITALS: BP 123/86
[2019-04-04] MEDS: ZOLPIDEM TARTRATE 10 MG TABLET PO PRN ×2 (00:05→22:45)
[2019-04-04] MEDS: LORazepam 2 MG TABLET PO PRN ×3 (08:23→20:06)
[2019-04-04] MEDS: OMEGA-3/DHA/EPA/FISH OIL 1,000 MG CAPSULE PO SCH (08:23)
[2019-04-04] MEDS: PANTOPRAZOLE SODIUM 40 MG DR TABLET PO SCH (08:24)
[2019-04-04] MEDS: DOCUSATE SODIUM 100 MG CAPSULE PO SCH (08:24)
[2019-04-04] MEDS: BENZTROPINE MESYLATE 0.5 MG TABLET PO SCH ×3 (08:24→20:06)
[2019-04-04 10:51] VITALS: BP 118/93
[2019-04-04 18:45] VITALS: BP 118/78
[2019-04-04] MEDS: LURASIDONE HCL 80 MG TABLET PO SCH (20:06)
[2019-04-04] MEDS: QUEtiapine FUMARATE 200 MG TABLET PO SCH (20:06)
[2019-04-04] MEDS: SIMVASTATIN 10 MG TABLET PO SCH (20:06)
[2019-04-05] MEDS: LORazepam 2 MG TABLET PO PRN ×3 (05:33→23:07)
[2019-04-05] MEDS: PANTOPRAZOLE SODIUM 40 MG DR TABLET PO SCH (09:12)
[2019-04-05] MEDS: OMEGA-3/DHA/EPA/FISH OIL 1,000 MG CAPSULE PO SCH (09:12)
[2019-04-05] MEDS: DOCUSATE SODIUM 100 MG CAPSULE PO SCH (09:12)
[2019-04-05] MEDS: BENZTROPINE MESYLATE 0.5 MG TABLET PO SCH ×2 (09:12→16:52)
[2019-04-05 09:56] VITALS: BP 111/88
[2019-04-05 16:00] VITALS: BP 106/65
[2019-04-05] MEDS: LURASIDONE HCL 80 MG TABLET PO SCH (21:04)
[2019-04-05] MEDS: QUEtiapine FUMARATE 200 MG TABLET PO SCH (21:04)
[2019-04-05] MEDS: SIMVASTATIN 10 MG TABLET PO SCH (21:05)
[2019-04-05] MEDS: ZOLPIDEM TARTRATE 10 MG TABLET PO PRN (21:11)
[2019-04-06 06:45] VITALS: BP 125/89
[2019-04-06] MEDS: LORazepam 2 MG TABLET PO PRN (06:45)
[2019-04-06 08:00] VITALS: BP 142/97
[2019-04-06] MEDS: OMEGA-3/DHA/EPA/FISH OIL 1,000 MG CAPSULE PO SCH (08:48)
[2019-04-06] MEDS: DOCUSATE SODIUM 100 MG CAPSULE PO SCH (08:48)
[2019-04-06] MEDS: PANTOPRAZOLE SODIUM 40 MG DR TABLET PO SCH (08:48)
[2019-04-06] MEDS ORDERED: BENZTROPINE MESYLATE 1 MG TABLET PO SCH (09:00)
[2019-04-06] MEDS ORDERED: BENZ1TAB10 PO (13:35)
[2019-04-06] MEDS ORDERED: OMEG-135 PO (13:37)
[2019-04-06] MEDS ORDERED: DSS100 PO (13:37)
== END 2019-04-06 14:50 | disposition home or self-care (01) | DRG 885 ==
LOC: EMS 14:15 → 3EX 17:17
PROVIDERS: ADMIT Psychiatry & Neurology Psychiatry; ATTEND Psychiatry & Neurology Psychiatry
DX: F20.0 Paranoid schizophrenia (principal); R45.851 Suicidal ideations; D64.9 Anemia, unspecified; E78.00 Pure hypercholesterolemia, unspecified; F12.90 Cannabis use, unspecified, uncomplicated; G43.909 Migraine, unspecified, not intractable, without status migrainosus; Z79.899 Other long term (current) drug therapy; Z56.0 Unemployment, unspecified
CPT/HCPCS: 84439; 84443; G0378; G0480